=== PATIENT | male | born 1990 | race Caucasian/White ===

== ENCOUNTER 2017-06-19 17:45 | Emergency (ER) | payer OTHER ==
[~2017-06-19] VITALS: Ht 177.8 cm; Wt 99.8 kg
[~2017-06-19 17:45] MED LIST: IMODIUM A-D2 M2 PO; PEPCID40 MG PO; PHENERGAN25 MG PO
== END 2017-06-19 20:56 | disposition home or self-care (01) ==
LOC: ER 17:45
DX: J06.9 Acute upper respiratory infection, unspecified (principal); R50.9 Fever, unspecified

== ENCOUNTER → 2017-08-04 | Emergency (ER) | payer OTHER ==
[~2017-08-04] VITALS: Ht 167.6 cm; Wt 90.7 kg
== END | disposition home or self-care (01) ==
LOC: ER 16:23
DX: S40.012A Contusion of left shoulder, initial encounter (principal); V49.3XXA Car occupant (driver) (passenger) injured in unspecified nontraffic accident, initial encounter; Y93.89 Activity, other specified; Y92.488 Other paved roadways as the place of occurrence of the external cause; Y99.8 Other external cause status

== ENCOUNTER 2019-07-16 16:23 | Emergency (ER) | payer OTHER ==
[~2019-07-16] VITALS: Ht 177.8 cm; Wt 108.9 kg
[2019-07-16] MEDS ORDERED: IPRAT-ALBUT 0.5-3 ML IH (20:15)
[2019-07-16] MEDS ORDERED: TUSNEL LIQUID178 ML PO (20:15)
[2019-07-16] MEDS ORDERED: AMOX-CLAV 875-1 EACH PO (20:15)
== END 2019-07-16 20:34 | disposition home or self-care (01) ==
LOC: ER 16:23
DX: H66.92 Otitis media, unspecified, left ear (principal)

== ENCOUNTER → 2019-07-18 | Emergency (ER) | payer OTHER ==
[~2019-07-18] VITALS: Ht 177.8 cm; Wt 108.9 kg
[~2019-07-18] MED LIST changes: +AMOX-CLAV 875-1 EACH PO; +IPRAT-ALBUT 0.5-3 ML IH; +TUSNEL LIQUID178 ML PO
== END | disposition home or self-care (01) ==
LOC: ER 00:58
DX: J45.998 Other asthma (principal); J06.9 Acute upper respiratory infection, unspecified; H66.91 Otitis media, unspecified, right ear

== ENCOUNTER 2019-11-02 16:43 | Emergency (ER) | payer OTHER ==
[~2019-11-02] VITALS: Ht 177.8 cm; Wt 99.8 kg
== END 2019-11-02 20:41 | disposition home or self-care (01) ==
LOC: ER 16:43
DX: I88.8 Other nonspecific lymphadenitis (principal)

== ENCOUNTER 2020-10-01 21:48 | Emergency (ER) | payer OTHER ==
[~2020-10-01] VITALS: Ht 177.8 cm; Wt 108.9 kg
== END 2020-10-01 22:40 | disposition home or self-care (01) ==
LOC: ER 21:48
DX: K05.10 Chronic gingivitis, plaque induced (principal)

== ENCOUNTER 2022-01-30 17:53 | Emergency (ER) | payer OTHER ==
[~2022-01-30] VITALS: Ht 177.8 cm; Wt 90.7 kg
[2022-01-30] MEDS ORDERED: LIPITOR20 MG PO (18:05)
[2022-01-30] MEDS ORDERED: VISTARIL25 MG PO (18:05)
== END 2022-01-30 20:45 | disposition home or self-care (01) ==
LOC: ER 17:53
DX: U07.1 COVID-19 (principal); M54.50 Low back pain, unspecified

== ENCOUNTER 2022-08-19 10:10 | Emergency (ER) | payer OTHER ==
[~2022-08-19] VITALS: Ht 177.8 cm; Wt 98.9 kg
[~2022-08-19 10:10] MED LIST changes: +LIPITOR20 MG PO; +VISTARIL25 MG PO
== END 2022-08-19 14:38 | disposition home or self-care (01) ==
LOC: ER 10:10
DX: J10.1 Influenza due to other identified influenza virus with other respiratory manifestations (principal); B34.9 Viral infection, unspecified; Z91.018 Allergy to other foods; Z20.822 Contact with and (suspected) exposure to COVID-19

== ENCOUNTER 2023-09-19 18:43 | Emergency (ER) | payer OTHER ==
[~2023-09-19] VITALS: Ht 177.8 cm; Wt 108.9 kg
[2023-09-19] MEDS ORDERED: BUSPIRONE HCL5 MG PO (18:59)
[2023-09-19] MEDS ORDERED: KETOROLAC TROMETHAMINE 60 MG VIAL IM ONE (19:30)
[2023-09-19] MEDS ORDERED: DICLOFENAC SODI50 MG PO (20:51)
== END 2023-09-19 21:42 | disposition home or self-care (01) ==
LOC: ER 18:44
DX: M79.632 Pain in left forearm (principal); M79.639 Pain in unspecified forearm; I10 Essential (primary) hypertension

== ENCOUNTER 2024-01-14 14:43 | Emergency (ER) | payer OTHER ==
[~2024-01-14] VITALS: Ht 167.6 cm; Wt 110.2 kg
[~2024-01-14 14:43] MED LIST changes: +BUSPIRONE HCL5 MG PO; +DICLOFENAC SODI50 MG PO
[2024-01-14] MEDS ORDERED: KETOROLAC TROMETHAMINE 60 MG VIAL IM ONE ×2 (16:00→16:04)
[2024-01-14] MEDS ORDERED: GUAIFENESIN/DEXTROMETHORPHAN 10ML BLIST.PACK PO ONE ×2 (16:00→16:04)
[2024-01-14 16:21] LABS: HEMATOCRIT 43.7 % (39.0-48.0); HEMOGLOBIN 14.9 g/dL (13-16.00); MEAN CELL VOLUME 86.8 fL (80.0-100.00); MEAN CORPUSCULAR HEMOGLOBIN 29.6 pg (27.00-32.0); PLATELET COUNT 289 K/uL (150-450); RED BLOOD COUNT 5.03 M/uL (4.00-6.00); RED CELL DISTRIBUTION WIDTH 13.6 % (11.5-14.5)
[2024-01-14 16:46] LABS: ALBUMIN 4.4 gm/dL (3.4-5.0); BILIRUBIN TOTAL 0.59 mg/dL (0.3-1.2); CALCIUM 9.5 mg/dL (8.5-10.1); CREATININE SERUM 1.03 mg/dL (0.70-1.30); GFR 82.67; GLOBULINA 3.9 G/DL (2.4-3.5); POTASSIUM 3.99 mEq/L (3.5-5.1); TOTAL PROTEIN 8.3 gm/dL (6.4-8.2)
[2024-01-14] MEDS ORDERED: TUSSIN DM LIQU118 ML PO (17:02)
[2024-01-14] MEDS ORDERED: ZYRTEC10 MG PO (17:02)
== END 2024-01-14 17:24 | disposition home or self-care (01) ==
LOC: ER 14:44
PROVIDERS: Nurse Practitioner Family
DX: U07.1 COVID-19 (principal); J00 Acute nasopharyngitis [common cold]; J45.909 Unspecified asthma, uncomplicated

== ENCOUNTER 2024-07-03 16:23 | Emergency (ER) | payer OTHER ==
[~2024-07-03] VITALS: Ht 177.8 cm; Wt 108.9 kg
[~2024-07-03 16:23] MED LIST changes: +TUSSIN DM LIQU118 ML PO; +ZYRTEC10 MG PO
== END 2024-07-03 17:52 | disposition home or self-care (01) ==
LOC: ER 16:26
DX: S50.812A Abrasion of left forearm, initial encounter (principal); X58.XXXA Exposure to other specified factors, initial encounter; Y93.89 Activity, other specified; Y92.89 Other specified places as the place of occurrence of the external cause; Y99.9 Unspecified external cause status